=== PATIENT | female | born 2000 | race Two or more races ===

== ENCOUNTER 2024-11-27 01:43 | Emergency (ER) | payer MEDICAID, SELFPAY ==
[2024-11-27 01:44] VITALS: BMI 21.4
[2024-11-27 01:51] VITALS: BP 138/97; PULSE 90; RESP 18; TEMP 37.1; O2SAT 95
--- NOTE | 2024-11-27 01:56 | PD.EDRME ---
Rapid Medical Screening Exam RME Arrival date/time: 11/27/24 01:43 24 yo f present to Ed for c/o of sore throat. I have greeted and performed a focused initial assessment of this patient. A comprehensive ED assessment and evaluation of the patient, analysis of all test results, and completion of the medical decision making process will be conducted by additional ED providers. Chief Complaint: Flu Like Symptoms Time Seen by Provider: 11/27/24 01:46 Vital signs: Vital Signs Temperature 98.8 F 11/27/24 01:51 Pulse Rate 90 11/27/24 01:51 Respiratory Rate 18 11/27/24 01:51 Blood Pressure 138/97 H 11/27/24 01:51 Pulse Oximetry (%) 95 11/27/24 01:51 Oxygen Delivery Method Room Air 11/27/24 01:51
[2024-11-27 02:48] LABS: Basophils % (Auto) 0 % (0-2.5); Eosinophils # (Auto) 0.1 Thou/mm3 (0.0-0.5); Eosinophils % (Auto) 1 % (0-10); Hematocrit 39.5 % (36.0-46.0); Hemoglobin 13.1 g/dL (12.0-16.0); Immature Granulocytes % (Auto) 0 % (0-0); Immature Granulocytes Auto 0.02 Thou/mm3 (0.00-0.00); Lymphocytes # (Auto) 2.3 Thou/mm3 (1.0-4.8); Lymphocytes % (Auto) 30 % (10-50); Mean Corpuscular HGB Conc 33.2 g/dl (31.0-37.0); Mean Corpuscular Volume 91 fL (80-100); Monocytes # (Auto) 0.5 Thou/mm3 (0.0-0.8); Monocytes % (Auto) 7 % (0-12); Neutrophils # (Auto) 4.8 Thou/mm3 (1.8-7.7); Neutrophils % (Auto) 62 % (37-80); Nucleated Red Blood Cell % 0 /100 WBC (0); Platelet Count 313 Thou/mm3 (140-440); RDW Standard Deviation 43.4 fL (36.4-46.3); Red Blood Count 4.36 Miln/mm3 (4.00-5.20); White Blood Count 7.8 Thou/mm3 (3.6-11.0)
[2024-11-27 03:16] LABS: Alanine Aminotransferase 11 U/L (10-49); Albumin, Serum 4.6 gm/dL (3.5-5.0); Albumin/Globulin Ratio 1.8 (1.2-2.2); Alkaline Phosphatase 65 U/L (46-116); Anion Gap 8 (7-16); Aspartate Amino Transferase 16 U/L (0-34); BUN/Creatinine Ratio 9 Ratio (12-20); Bilirubin,Total 0.5 mg/dL (0.3-1.2); Blood Urea Nitrogen 6 mg/dL (9-23); Calcium 9.5 mg/dL (8.3-10.6); Calcium (Corrected) 9.5 mg/dL (8.5-10.1); Chloride 107 mMol/L (98-107); Creatinine (Component) 0.7 mg/dL (0.6-1.3); Globulin 2.5 gm/dL (2.3-3.5); Glucose 95 mg/dL (74-106); Osmolality,Calculated 278 (275-295); Sodium 141 mMol/L (136-145); Total Protein 7.1 gm/dL (5.7-8.2); eGFR > 60 See Note
[2024-11-27 03:18] LABS: Strep A Rapid Negative (Negative)
[2024-11-27 03:19] LABS: HCG,Qualitative Serum Negative
[2024-11-27 04:48] LABS: Mono Screen Negative (Negative)
--- NOTE | 2024-11-27 04:54 | PD.EDURI ---
Upper Respiratory Inf. RME/HPI General Chief Complaint: Flu Like Symptoms Stated Complaint: SORE THROAT / COUGH /FEVER Time Seen by Provider: 11/27/24 01:46 Arrival date/time: 11/27/24 01:43 24 year old female present to emergency room with c/o of sore throat, cough and fever for a few days. SEVERITY: Symptoms are described as being severe with limitations on activities of daily living CONTEXT: The patient is unable to identify any inciting events. DURATION/TIMING: The symptoms started approximately 2 days ASSOCIATED SYMPTOMS: The patient is unable to identify any other associated symptoms. MODIFYING FACTORS: The patient is unable to identify any alleviating or aggravating symptoms. PERTINENT ROS: no chest pain/shortness of breath no nausea,vomiting, diarrhea, no dizziness/headache no rash no loc/syncope episode no abd/back pain no dsyuria,urgency,frequency REVIEW OF SYSTEMS: See History of Present Illness - with the exception of those mentioned in the history of present illness, all other systems reviewed and reported as negative GENERAL: In general the patient is awake, interactive, in an emergency department gurney. HEAD/EYES/EARS/NOSE/THROAT: normo-cephalic, atraumatic, mucus membranes are moist, anicteric, palpebral conjunctiva is pink, trachea is midline. CARDIOVASCULAR: regular rate and regular rhythm, no murmurs, heart sounds are not distant, strong pulses in all four extremities that are equal and symmetric bilateral upper and lower extremities, normal capillary refill. CHEST/PULMONARY: normal chest rise and fall, good air movement, clear to auscultation bilaterally, normal inspiratory to expiratory ratios without evidence of respiratory distress. NECK: No midline/Paraspinal tenderness, no step off ROM/Strenght intact No Kernig and bruzinski sign. No trauma ABDOMEN: soft, not tender, no masses appreciated BACK: normal range of motion without pain. NEUROLOGICAL: cranio-facial features are symmetric, moves all four extremities equally without obvious limitations or weakness. EXTREMITY: no tenderness to palpation over the long bones or large joints of the bilateral upper and lower extremities, no joint swelling, no joint erythema, no signs of trauma, no unilateral leg swelling and no peripheral edema. SKIN: warm, dry, well-perfused, no jaundice, no rash, no telangiectasias or petechia. PSYCH: calm, cooperative, no evidence of psychosis or agitation RME / HPI RME / HPI Narrative: 11/27/24 01:43 24 yo f present to Ed for c/o of sore throat. I have greeted and performed a focused initial assessment of this patient. A comprehensive ED assessment and evaluation of the patient, analysis of all test results, and completion of the medical decision making process will be conducted by additional ED providers. Related Data Previous Rx's ?Medication ?Instructions ?Recorded ibuprofen 600 mg tablet 600 mg PO Q8H PRN fever or pain 11/01/19 #30 tabs ondansetron HCl 4 mg tablet 4 mg PO Q8H PRN nausea and 06/11/20 (Zofran) vomiting #20 tabs metoclopramide HCl 10 mg tablet 10 mg PO Q6H PRN nausea and 03/26/24 (Reglan) vomiting #30 tabs benzonatate 200 mg capsule 200 mg PO TID PRN cough #30 caps 11/27/24 Allergies Allergy/AdvReac Type Severity Reaction Status Date / Time No Known Allergies Allergy Verified 05/12/19 14:26 Course Course Course Narrative: Medical Decision Making Patient presenting for evaluation of fever, nasal congestion, sore throat. Vital signs revealed no major abnormalities, no hypoxia, no tachycardia, no tachypnea, no hypotension. Diagnosis at this time most consistent with viral upper respiratory infection, viral illness. Differential diagnosis considered including viral upper respiratory infection, viral illness, viral fever, strep throat, influenza, cough, mononucleosis.? These were thought to be less likely given the history, exam, and workup. Diagnostic testing performed: Chest Xray reveals no evidence of pneumonia or other acute process, influenza negative, WBC normal, rapid strep test negative, urinalysis does not appear to be infection, mononucleosis negative. Treatments provided included with improvement in symptoms. Rest, fluids, and [id number] symptomatic treatments were recommended. Recommend over the counter Tylenol and Ibuprofen for fever/general discomfort. Follow up in three to five days, present to ER with new or worsening symptoms. Quality Measures none Orders Category Date Time Status Bedside Influenza A&B Antigen Test NOW Care 11/27/24 01:56 Completed CBC Stat Lab 11/27/24 02:39 Completed CMP [Comprehensive Metabolic Panel] Stat Lab 11/27/24 02:39 Completed HCG,Qualitative Serum Stat Lab 11/27/24 02:39 Completed Owen Screen Stat Lab 11/27/24 02:39 Completed Strep A Rapid Stat Lab 11/27/24 02:01 Completed Vital Signs Vital signs: Vital Signs Temperature 98.8 F 11/27/24 01:51 Pulse Rate 90 11/27/24 01:51 Respiratory Rate 18 11/27/24 01:51 Blood Pressure 138/97 H 11/27/24 01:51 Pulse Oximetry (%) 95 11/27/24 01:51 Oxygen Delivery Method Room Air 11/27/24 01:51 Upper Respiratory Infection Patient data External records reviewed:: [facility] previous records Clinical information provided by:: patient Social determinants that could affect healthcare access:: none (na ) Patient has the following chronic illnesses:: n/a How is presenting disease/condition affected by chronic disease/condition?: no chronic disease Evaluation data The following diagnostics were reviewed and interpreted by me:: lab results Lab and/or radiology exams considered but not ordered:: n/a Interpretation Summary: cbc/cmp wnl strep/mono/flu negative Medications / Prescriptions Medications or Prescriptions considered but not ordered:: n/a Medication administrations:: n.a Consultations Consultation(s) initiated? (list below): No Diagnosis Upper Respiratory Differential Diagnosis: upper respiratory infection, viral infection, bronchitis, influenza, pharyngitis and other (flu) Most likely diagnosis given after review of the tests above:: URI Admission Indicated Admission indicated?: not indicated Admission Request Was there a request for admission?: No Disposition Plan Disposition Plan: Discharge Discharge Attestation Discharge Attestation: The patient and all family members were given an opportunity to ask questions and understood the discharge instructions. Discharge instructions specifically effects, indications for sooner follow up or return to the emergency department, and the expected course of current diagnosis. Patient condition: Stable Discharge Plan Plan Patient Disposition: HOME (Self Care) Prescriptions/Referrals Prescriptions/Med Rec: New benzonatate 200 mg capsule 200 mg PO TID PRN (Reason: cough) Qty: 30 0RF No Action ondansetron HCl [Zofran] 4 mg tablet 4 mg PO Q8H PRN (Reason: nausea and vomiting) Qty: 20 0RF ibuprofen 600 mg tablet 600 mg PO Q8H PRN (Reason: fever or pain) Qty: 30 0RF metoclopramide HCl [Reglan] 10 mg tablet 10 mg PO Q6H PRN (Reason: nausea and vomiting) Qty: 30 0RF Referrals: Bijan Campos MD [Primary Care Provider] - In 1 week Problem List Clinical Impression: Upper respiratory infection Patient/Caregiver Discharge Instructions Education Materials: ED URI, Viral, No Abx (Adult) Print Language: Malagasy Stand Alone Forms: [facility] Award Info., Patient Portal Info Letter
[2024-11-27 04:58] VITALS: BP 136/76; PULSE 88; RESP 18; TEMP 37; O2SAT 99
== END 2024-11-27 05:00 | disposition home or self-care (01) ==
PROVIDERS: Physician Assistant; Emergency Provider Emergency Medicine; PCP Family Medicine
DX: J06.9 Acute upper respiratory infection, unspecified (principal)
CPT/HCPCS: 36415; 80053; 84703; 85025; 86308; 87400; 87651; 99283

== ENCOUNTER 2025-08-09 15:48 | Emergency (ER) | payer MEDICAID, SELFPAY ==
[2025-08-09 15:49] VITALS: BMI 21.3
[2025-08-09 16:50] VITALS: BP 146/81; PULSE 90; RESP 16; TEMP 36.8; O2SAT 98
--- NOTE | 2025-08-09 16:59 | XR_ITS ---
Examination: Pelvic ultrasound, transabdominal, complete Technique: Transabdominal ultrasound of the pelvis performed using grayscale imaging Date and time of exam: August 09, 2025, 1933 hours INDICATIONS: Pelvic pain beginning 3 days ago FINDINGS: Uterus 7.9 cm endometrial stripe 0.25 cm No uterine mass or intrauterine gestation Right ovary 2.9 x 3.3 cm arterial flow small follicles Left ovary 3.2 x 2.8 cm arterial flow small follicles, the largest 12 mm IMPRESSION: No uterine mass or intrauterine gestation
--- NOTE | 2025-08-09 17:00 | EDRME_ITS ---
Rapid Medical Screening Exam [facility] Arrival date/time: 08/09/25 15:48 25-year-old female with no known medical history presents to the emergency room with a chief complaint of vaginal bleeding and left-sided pelvic pain x 2 days. Patient states her last menses was 1 week ago. I have greeted and performed a focused initial assessment of this patient. A comprehensive ED assessment and evaluation of the patient, analysis of all test results, and completion of the medical decision making process will be conducted by additional ED providers. Chief Complaint: Vaginal Bleeding Time Seen by Provider: 08/09/25 16:29 Vital signs: Vital Signs Temperature 98.3 F 08/09/25 16:50 Pulse Rate 90 08/09/25 16:50 Respiratory Rate 16 08/09/25 16:50 Blood Pressure 146/81 H 08/09/25 16:50 Pulse Oximetry (%) 98 08/09/25 16:50 Oxygen Delivery Method Room Air 08/09/25 16:50 Vital signs reviewed by provider: Yes Exam: Left lower quadrant abdominal tenderness with palpation Clear bilateral lung sounds Clinical Impression: Ovarian cyst/vaginal bleeding
[2025-08-09 17:39] LABS: Basophils # (Auto) 0.0 Thou/mm3 (0.0-0.2); Basophils % (Auto) 1 % (0-2.5); Eosinophils # (Auto) 0.1 Thou/mm3 (0.0-0.5); Eosinophils % (Auto) 2 % (0-10); Hematocrit 40.2 % (36.0-46.0); Hemoglobin 13.4 g/dL (12.0-16.0); Immature Granulocytes Auto 0.01 Thou/mm3 (0.00-0.00); Lymphocytes # (Auto) 2.1 Thou/mm3 (1.0-4.8); Lymphocytes % (Auto) 48 % (10-50); Mean Corpuscular HGB Conc 33.3 g/dl (31.0-37.0); Mean Corpuscular Hemoglobin 29.6 pg (25.0-35.0); Mean Corpuscular Volume 89 fL (80-100); Monocytes # (Auto) 0.5 Thou/mm3 (0.0-0.8); Monocytes % (Auto) 12 % (0-12); Neutrophils # (Auto) 1.7 Thou/mm3 (1.8-7.7); Neutrophils % (Auto) 38 % (37-80); Nucleated Red Blood Cell # 0.00 Thou/mm3 (0.00-0.00); Nucleated Red Blood Cell % 0 /100 WBC (0); Platelet Count 278 Thou/mm3 (140-440); RDW Standard Deviation 43.0 fL (36.4-46.3); Red Blood Count 4.52 Miln/mm3 (4.00-5.20); White Blood Count 4.3 Thou/mm3 (3.6-11.0)
[2025-08-09 17:58] LABS: Collection Type, Urine Clean Catch
[2025-08-09 18:06] LABS: HCG,Qualitative Serum Negative
[2025-08-09 18:11] LABS: Alanine Aminotransferase 8 U/L (10-49); Albumin, Serum 5.0 gm/dL (3.5-5.0); Albumin/Globulin Ratio 2.0 (1.2-2.2); Alkaline Phosphatase 46 U/L (46-116); Anion Gap 11 (7-16); Aspartate Amino Transferase 19 U/L (0-34); BUN/Creatinine Ratio 11 Ratio (12-20); Bilirubin,Total 0.3 mg/dL (0.3-1.2); Blood Urea Nitrogen 8 mg/dL (9-23); Calcium 9.4 mg/dL (8.3-10.6); Calcium (Corrected) 9.4 mg/dL (8.5-10.1); Carbon Dioxide 25.6 mMol/L (20.0-31.0); Chloride 106 mMol/L (98-107); Creatinine (Component) 0.7 mg/dL (0.6-1.3); Estimated Creatinine Clearance 92.7 mL/min (>60); Globulin 2.5 gm/dL (2.3-3.5); Glucose 74 mg/dL (74-106); Lipase 59 U/L (12-53); Osmolality,Calculated 282 (275-295); Potassium 4.2 mMol/L (3.4-5.1); Sodium 143 mMol/L (136-145); Total Protein 7.5 gm/dL (5.7-8.2); eGFR > 60 See Note
[2025-08-09 18:23] LABS: Bilirubin,Urine Negative (Negative); Blood,Urine 3+ (Negative); Clarity,Urine Clear (Clear/Hazy); Color,Urine Lt-Yellow (Lt Yel-Yel); Glucose, Urine Negative (Negative); Ketones,Urine Negative (Negative); Leukocyte Esterase,Urine Negative (Negative); Nitrite,Urine Negative (Negative); PH,Urine 6.5 (5.0-7.0); Protein,Urine Negative (Neg - Trace); RBC,Urine 8 /hpf (0-3); Specific Gravity,Urine 1.022 (1.001-1.035); Squamous Epithelial Cell,Urine 1 /hpf (0-5); Urobilinogen,Urine Negative mg/dL (0.0-1.0); WBC,Urine 1 /hpf (0-5)
--- NOTE | 2025-08-09 20:19 | PRELIM_ITS ---
Pelvic ultrasound (transabdominal) August 09, 2025 1938 hours Clinical history: Vaginal bleeding. Technique: Real-time, grayscale, transabdominal pelvic ultrasound was performed using Duplex scanning including arterial inflow, venous outflow, color and spectral Doppler. No prior study is available for comparison. Findings: The uterus is normal in size measuring 7.8 x 3.1 x 3.5 cm. The endometrium is unremarkable and measures 0.2 cm. The right ovary measures 2.8 x 1.8 x 3.2 cm and is unremarkable. The left ovary measures 3.1 x 1.9 x 2.8 cm and is unremarkable. It demonstrates a 1.1 cm dominant follicle. Both ovaries demonstrate color flow and spectral waveforms on Doppler evaluation. There is no adnexal mass. There is no free fluid on the submitted images. Impression: Unremarkable pelvic sonogram. Report Electronically Signed By: Pavel Allen 08/09/2025 8:19:20 PM [EST]
--- NOTE | 2025-08-09 22:16 | PD.EDVAGBL ---
ED OB Contraction Preg RMI/HPI General Chief complaint: Vaginal Bleeding Stated complaint: VAG BLEEDING X1 DAY, MASS INSIDE L OVARY Time Seen by Provider: 08/09/25 16:29 Source: patient Arrival date/time: 08/09/25 15:48 Mode of arrival: ambulatory Limitations: no limitations RME / HPI RME / HPI Narrative: 08/09/25 15:48 25-year-old female with no known medical history presents to the emergency room with a chief complaint of vaginal bleeding and left-sided pelvic pain x 2 days. Patient states her last menses was 1 week ago. I have greeted and performed a focused initial assessment of this patient. A comprehensive ED assessment and evaluation of the patient, analysis of all test results, and completion of the medical decision making process will be conducted by additional ED providers. Patient states symptoms came on approximately 2 days ago and have been relatively constant. Patient denies any fever nausea or vomiting. Patient denies any traumatic events. Patient states she is not sure of her status. Exam: Left lower quadrant abdominal tenderness with palpation Clear bilateral lung sounds Impression: Ovarian cyst/vaginal bleeding Related Data Previous Rx's ?Medication ?Instructions ?Recorded ibuprofen 600 mg tablet 600 mg PO Q8H PRN fever or pain 11/01/19 #30 tabs ondansetron HCl 4 mg tablet 4 mg PO Q8H PRN nausea and 06/11/20 (Zofran) vomiting #20 tabs metoclopramide HCl 10 mg tablet 10 mg PO Q6H PRN nausea and 03/26/24 (Reglan) vomiting #30 tabs benzonatate 200 mg capsule 200 mg PO TID PRN cough #30 caps 11/27/24 Allergies Allergy/AdvReac Type Severity Reaction Status Date / Time No Known Allergies Allergy Verified 08/09/25 15:51 Review of Systems Review of Systems Systems Reviewed: All systems reviewed, normal except as documented Past Medical History Past Medical History NEUROLOGIC: Negative Seizures CARDIAC: Positive Hypercholesterolemia; Negative Cardiac Disorders or Congestive Heart Failure RESPIRATORY: Negative Chronic Obstructive Pulmonary Disease (COPD) or Asthma GENITOURINARY: Negative Renal Disease ENDOCRINE: Negative Diabetes Mellitus Type 1 or Diabetes Mellitus Type 2 HEMATOLOGIC: Negative Sickle Cell Disease OTHER HISTORY: Negative Blood Transfusions, Blood Transfusion Reaction or Anesthesia Reactions Social History SMOKING STATUS: Never smoker ED Exam Narrative Physical exam: Patient was in mild distress at time of evaluation due to anxiety related to her vaginal bleeding events rather than definitive pain concerns. General Limitations: Present no limitations General appearance: Present alert and in distress (Mild distress due to anxiety.) Head Head exam: Present atraumatic Eye Eye exam: Present normal appearance, PERRL and EOMI ENT ENT exam: Present normal exam, normal oropharynx and mucous membranes moist Neck Neck exam: Present normal inspection, full ROM and trachea midline Chest Chest inspection: Present normal inspection and symmetric chest wall rise Respiratory Respiratory exam: Present normal lung sounds bilaterally Cardiovascular Cardiovascular exam: Present regular rate, normal rhythm and normal heart sounds Abdominal Exam Abdominal exam: Present other (Diffuse nonspecific bilateral lower abdominal tenderness palpation. No pulsatile masses. No signs of trauma. ) Extremities Exam Extremities exam: Present normal inspection and full ROM Back Exam Back exam: Present normal inspection and full ROM Neurological Exam Neurological exam: Present alert, oriented X3 and CN II-XII intact Psychiatric Psychiatric exam: Present normal affect and normal mood Skin Skin exam: Present warm, dry, intact and normal color Course Quality Measures none Orders Category Date Time Status US pelvic complete Stat Exams 08/09/25 16:59 Completed CBC Stat Lab 08/09/25 17:18 Completed CMP [Comprehensive Metabolic Panel] Stat Lab 08/09/25 17:18 Completed HCG,Qualitative Serum Stat Lab 08/09/25 17:18 Completed Lipase Stat Lab 08/09/25 17:18 Completed UA [Urinalysis] Stat Lab 08/09/25 17:37 Completed Urine Culture Stat Lab 08/09/25 17:37 Received As noted above Vital Signs Vital signs: Vital Signs Temperature 98.3 F 08/09/25 16:50 Pulse Rate 90 08/09/25 16:50 Respiratory Rate 16 08/09/25 16:50 Blood Pressure 146/81 H 08/09/25 16:50 Pulse Oximetry (%) 98 08/09/25 16:50 Oxygen Delivery Method Room Air 08/09/25 16:50 As noted above Vaginal Bleeding MDM Narrative MDM Narrative: All studies performed the ED were evaluated by me personally. Serum studies and urinalysis is unremarkable for any systemic concerns. OB ultrasound was unremarkable for any definitive cystic or fibrotic concerns of the uterus and ovaries. Advised patient follow-up with primary care provider and automatic bow maker machine tender for continued evaluation as needed. Patient data External records reviewed:: [facility] previous records Clinical information provided by:: patient Social determinants that could affect healthcare access:: none Patient has the following chronic illnesses:: None How is presenting disease/condition affected by chronic disease/condition?: no chronic disease Evaluation data The following diagnostics were reviewed and interpreted by me:: lab results and radiology exam(s) Lab and/or radiology exams considered but not ordered:: None Interpretation Summary: Menometrorrhagia Medications / Prescriptions Medications or Prescriptions considered but not ordered:: None Medication administrations:: None Consultations Consultation(s) initiated? (list below): No Diagnosis Vaginal Bleeding Differential Diagnosis: other (Menometrorrhagia, ovarian cyst, uterine fibroid, ectopic , abdominal pain, UTI) Most likely diagnosis given after review of the tests above:: Menometrorrhagia Admission Indicated Admission indicated?: not indicated Explain why admission is indicated or not indicated:: Unwarranted Admission Request Was there a request for admission?: No Disposition Plan Disposition Plan: Discharge Discharge Attestation Discharge Attestation: The patient and all family members were given an opportunity to ask questions and understood the discharge instructions. Discharge instructions specifically effects, indications for sooner follow up or return to the emergency department, and the expected course of current diagnosis. Patient condition: Stable Discharge Plan Plan Patient Disposition: HOME (Self Care) Prescriptions/Referrals Prescriptions/Med Rec: No Action ondansetron HCl [Zofran] 4 mg tablet 4 mg PO Q8H PRN (Reason: nausea and vomiting) Qty: 20 0RF ibuprofen 600 mg tablet 600 mg PO Q8H PRN (Reason: fever or pain) Qty: 30 0RF metoclopramide HCl [Reglan] 10 mg tablet 10 mg PO Q6H PRN (Reason: nausea and vomiting) Qty: 30 0RF benzonatate 200 mg capsule 200 mg PO TID PRN (Reason: cough) Qty: 30 0RF Referrals: Bijan Campos MD [Primary Care Provider, Family Practice] - In 1 week Problem List Clinical Impression: Menometrorrhagia Patient/Caregiver Discharge Instructions Education Materials: ED Dysfunctional Uterine Bleeding Additional Instructions: Advised patient utilize Tylenol and/or Motrin as needed for pain relief in addition, patient is to follow-up with gynecology for discussions related to today's visit and long-term management. Print Language: Dutch Stand Alone Forms: [facility]ella Award Info., Patient Portal Info Letter
== END 2025-08-09 22:30 | disposition home or self-care (01) ==
PROVIDERS: Nurse Practitioner Family; Emergency Provider Emergency Medicine; PCP Family Medicine
DX: N92.1 Excessive and frequent menstruation with irregular cycle (principal)
CPT/HCPCS: 36415; 76856; 80053; 81001; 83690; 84703; 85025; 87086; 99283